=== PATIENT | female | born 1950 | race Two or more races ===

== ENCOUNTER 2024-09-01 10:16 | Day surgery (SDC) | payer MEDICARE, MEDICAID ==
[2024-09-01] VITALS (12 sets, daily range): BP systolic 117–147; BP diastolic 74–94; PULSE 65–80; RESP 14–16; TEMP 97.8; O2SAT 96–98
[~2024-09-01] VITALS: Ht 162.6 cm; Wt 92.9 kg
[2024-09-01] MEDS ORDERED: nitroGLYCERIN 0.4mg SUBLingual tab SL PRN (11:05)
[2024-09-01] MEDS ORDERED: CARV6.2553 PO (11:21)
[2024-09-01] MEDS ORDERED: CLOP75TA34 PO (11:21)
[2024-09-01] MEDS ORDERED: LEVO50TA8 PO (11:21)
[2024-09-01] MEDS ORDERED: ROSU40TA89 PO (11:21)
[2024-09-01] MEDS ORDERED: METF-1203 PO (11:21)
[2024-09-01 11:32] LABS: BASOPHILS # (AUTO) 0.1 X10'3 (0-0.2); BASOPHILS % (AUTO) 0.8 % (0-1); EOSINOPHILS # (AUTO) 0.3 X10'3 (0-0.9); EOSINOPHILS % (AUTO) 3.3 % (0-6); HEMOGLOBIN 13.7 g/dl (12.0-16.0); LYMPHOCYTES # (AUTO) 2.6 X10'3 (1.1-4.8); LYMPHOCYTES % (AUTO) 31.2 % (21-51); MEAN CORPUSCULAR HEMOGLOBIN 30.6 PG (27.0-31.0); MEAN CORPUSCULAR HGB CONC 34.3 g/dL (33.0-36.5); MEAN CORPUSCULAR VOLUME 89.3 FL (78-98); MEAN PLATELET VOLUME 7.7 FL (7.4-10.4); MONOCYTES # (AUTO) 0.7 X10'3 (0-0.9); MONOCYTES % (AUTO) 8.1 % (2-12); NEUTROPHILS # (AUTO) 4.7 X10'3 (1.8-7.7); NEUTROPHILS % (AUTO) 56.6 % (42-75); PLATELET COUNT 355 X10'3 (140-440); RED BLOOD COUNT 4.48 X10'6 (4.20-5.60); RED CELL DISTRIBUTION WIDTH 13.8 % (11.5-14.5); WHITE BLOOD COUNT 8.3 X10'3 (4.5-11.0)
[2024-09-01 11:42] LABS: APTT 32 SECONDS (22-32)
[2024-09-01 11:51] LABS: HEMOGLOBIN A1C 6.9 % (4.5-6.2)
[2024-09-01 11:59] LABS: ALBUMIN 3.8 G/DL (3.4-5.0); ANION GAP 1 (8-16); BLOOD UREA NITROGEN 12 MG/DL (7-18); CALCIUM 8.9 MG/DL (8.5-10.1); CHLORIDE 105 MMOL/L (99-107); CREATININE 0.75 MG/DL (0.40-0.90); GLUCOSE 124 MG/DL (70-104); POTASSIUM 4.2 MMOL/L (3.5-5.1); PRO BRAIN NATRIURETIC PEPTIDE 110 PG/ML (0-125); SODIUM 134 MMOL/L (135-145); TOTAL CARBON DIOXIDE 27.8 MMOL/L (24-32); eCRCL 59 ML/MIN; eGFR 76 ML/MIN
[2024-09-01] MEDS: normal saline 1,000 ML IV SCH (12:02)
[2024-09-01] MEDS: LORazepam 0.5 MG tablet PO PRN (12:02)
[2024-09-01] MEDS: diphenhydrAMINE 25mg capsule PO PRN (12:02)
[2024-09-01 12:18] LABS: PROTHROMBIN TIME 10.8 SECONDS (9.0-12.0)
[2024-09-01] MEDS ORDERED: midazolam 1 mg/ML 2ml injection ONE (12:23)
[2024-09-01] MEDS ORDERED: fentaNYL/PF 50MCG/1 ML 2ML syringe ONE (12:23)
[2024-09-01] MEDS ORDERED: LIDOcaine 1% 30ml preserv. free vial ONE (12:23)
[2024-09-01] MEDS ORDERED: iohexol 350MG/ML 100ml bottle IV ONE (12:24)
[2024-09-01] MEDS ORDERED: iohexol 350 MG/ML 50ML vial IV ONE (12:24)
[2024-09-01] MEDS ORDERED: normal saline 1000ml 1,000 ML IV SCH (13:55)
[2024-09-01] MEDS ORDERED: ondansetron/PF 4mg/2ml inj IV PRN (13:55)
[2024-09-01] MEDS ORDERED: HYDROcodone/acetaminophen 10/325mg tab PO PRN (14:00)
[2024-09-01] MEDS ORDERED: proCHLORperazine 10 MG/2 ml inj IV PRN (14:00)
[2024-09-01] MEDS ORDERED: HYDROcodone/acetaminophen 5mg/325mg tablet PO PRN (14:00)
[2024-09-01] MEDS ORDERED: OXAZEpam 15mg capsule PO PRN (14:00)
== END 2024-09-01 19:00 | disposition home or self-care (01) ==
LOC: SSTAY O 10:16
PROVIDERS: ATTEND Internal Medicine Cardiovascular Disease
DX: I25.119 Atherosclerotic heart disease of native coronary artery with unspecified angina pectoris (principal); I25.2 Old myocardial infarction; I10 Essential (primary) hypertension; E11.9 Type 2 diabetes mellitus without complications; J44.9 Chronic obstructive pulmonary disease, unspecified; E66.9 Obesity, unspecified; Z68.35 Body mass index [BMI] 35.0-35.9, adult; Z88.0 Allergy status to penicillin; Z88.5 Allergy status to narcotic agent
CPT/HCPCS: 36415; 71046; 80048; 82948; 83036; 83880; 85025; 85610; 85730; 93005; 93458; 99152; A6258; C1760; J1644; J2003; J2250; J3010; J7030; Q0163; Q9967; 99153; C1769; C1894